=== PATIENT | female | born 1980 | race Caucasian/White ===

== ENCOUNTER 2017-02-10 21:48 | Emergency (ER) | payer OTHER ==
[~2017-02-10] VITALS: Ht 172.7 cm; Wt 94.0 kg
[2017-02-10 22:20] VITALS: BP 157/71
[2017-02-10] MEDS ORDERED: BACTROBAN OINTM22 GM TP (23:06)
[2017-02-10] MEDS ORDERED: KENALOG,ARISTOC80 GM TP (23:06)
== END 2017-02-10 23:37 | disposition home or self-care (01) ==
LOC: EME 21:48
DX: L23.9 Allergic contact dermatitis, unspecified cause (principal)
CPT/HCPCS: 80048; 83605; 85025; 87040; 99281; 99283

== ENCOUNTER 2018-03-05 20:04 | Emergency (ER) | payer OTHER ==
[~2018-03-05] VITALS: Ht 172.7 cm; Wt 91.4 kg
[~2018-03-05 20:04] MED LIST: BACTROBAN OINTM22 GM TP; KENALOG,ARISTOC80 GM TP
[2018-03-05 21:17] LABS: HEMATOCRIT 40.1 % (36.0-46.0); HEMOGLOBIN 14.1 G/DL (11.9-15.5); MCH 32.8 PG (29.0-34.0); MCHC 35.2 G/DL (30.0-36.0); MCV 93.3 FL (83-99); PLATELET COUNT 255 K/uL (156-360); RBC DIS.WIDTH-SD 41.1 % (39-53); WHITE BLOOD COUNT 8.4 K/uL (4.1-10.2)
[2018-03-05 21:47] LABS: CHLORIDE 109 mEq/L (99-109); POTASSIUM 3.6 mEq/L (3.7-5.4); SODIUM 140 mEq/L (136-147)
[2018-03-05 21:49] LABS: GLUCOSE 85 mg/dL (70-99)
[2018-03-05 21:50] LABS: TROP-I INTERPRETATION NEGATIVE; TROPONIN-I < 0.01 ng/mL (0.0-0.30)
[2018-03-05 21:53] LABS: CREATININE 0.8 mg/dL (0.6-1.3); GFR ESTIMATE (CALCULATED) > 59 mL/min/; UREA NITROGEN (BUN) 10 mg/dL (9-23)
[2018-03-05] MEDS ORDERED: XANAX0.25 MG PO (22:48)
[2018-03-05 22:56] VITALS: BP 103/69
== END 2018-03-05 22:57 | disposition home or self-care (01) ==
LOC: EME 20:04
DX: R00.2 Palpitations (principal); Z86.14 Personal history of Methicillin resistant Staphylococcus aureus infection
CPT/HCPCS: 71046; 80048; 84443; 84484; 85027; 93005; 99281; 99283